=== PATIENT | male | born 1970 | race Caucasian/White ===

== ENCOUNTER 2018-08-05 21:28 | Emergency (ER) | payer MEDICAID ==
[~2018-08-05] VITALS: Ht 182.9 cm; Wt 75.7 kg
[2018-08-05 21:35] VITALS: BP_SYST 150
--- NOTE | 2018-08-05 21:39 | NUR ---
Pt placed to ER waiting room in stable condition.
--- NOTE | 2018-08-05 21:51 | NUR ---
Patient to ER bed 1 to gown for evaluation. Side rails up
--- NOTE | 2018-08-05 21:53 | NUR ---
Pt is AAO x 4 and ambulatory c/o right rib pain for the past few days. Pt was lifting water and felt pain to right rib. Pt states he cannot sleep at night due to pain. Pt also states when taking deep breaths pain increases. No other injuries/complaints per patient or noted.
--- NOTE | 2018-08-05 21:55 | NUR ---
ER Dr. Carbone at bedside examining patient.
[2018-08-05 22:36] VITALS: BP_SYST 142
--- NOTE | 2018-08-05 22:36 | NUR ---
Patient given written and verbal discharge instructions and verbalizes understanding. ER MD discussed with patient the results and treatment provided. Patient in stable condition. ID arm band removed. Rx of Tramadol given. Patient educated on pain management and to follow up with PMD. Pain Scale 0. Opportunity for questions provided and answered. Medication side effect fact sheet provided.
== END 2018-08-05 22:36 | disposition home or self-care (01) ==
LOC: SED 21:28
DX: S20.211A Contusion of right front wall of thorax, initial encounter (principal); K21.9 Gastro-esophageal reflux disease without esophagitis; I10 Essential (primary) hypertension; X50.0XXA Overexertion from strenuous movement or load, initial encounter; Y93.89 Activity, other specified; Y92.89 Other specified places as the place of occurrence of the external cause; Y99.8 Other external cause status
CPT/HCPCS: 71100; 99283